=== PATIENT | male | born 1960 | race Caucasian/White ===

== ENCOUNTER 2019-11-24 16:47 | Outpatient (CLI) | payer MEDICARE, MEDICAID, SELFPAY ==
--- NOTE | ~2019-11-24 | US_ITS ---
US thyroid INDICATION: Nontoxic thyroid nodule TECHNIQUE: Real-time sonographic images of the thyroid gland were obtained. COMPARISON: No prior studies for comparison. FINDINGS: The right thyroid lobe measures 4.4 x 1.6 x 1.8 cm. The left thyroid lobe measures 3.9 x 1 .7 x 1.4 cm. There is normal echotexture and echogenicity throughout the thyroid gland. No discrete n odules identified. Normal vascular flow is present. IMPRESSION: 1. Normal thyroid without discrete nodule or abnormal vascularity. Reviewed, dictated and finalized at location A. ER L[facility]ELER
== END 2019-11-24 16:48 | disposition home or self-care (01) ==
LOC: ANHIMG 16:54
PROVIDERS: PCP Family Medicine; Visit Provider Family Medicine
DX: E04.1 Nontoxic single thyroid nodule (principal)
CPT/HCPCS: 76536

== ENCOUNTER 2021-06-12 08:53 | Emergency (ER) | payer MEDICARE, MEDICAID, SELFPAY ==
--- NOTE | ~2021-06-12 | XR_ITS ---
EXAMINATION: XR knee LT min 4V DATE: 06/12/2021 09:32 INDICATION: Left knee injury and pain. TECHNIQUE: 4 views of left knee were obtained. COMPARISON: Left knee radiographs 10/18/2014 FINDINGS: Bone alignment is normal. No fracture. There is mild tricompartmental osteoarthritis. There is a small knee joint effusion. IMPRESSION: 1. Mild left knee osteoarthritis. 2. Small left knee joint effusion. Reviewed, dictated and finalized at location B.
[2021-06-12 09:10] VITALS: BP 137/90; PULSE 52; RESP 16; O2SAT 95
--- NOTE | 2021-06-12 10:04 | ED.LOWEXIN ---
HPI - Extremity Injury (Lower) General Chief Complaint: Extremity Injury, Lower Stated Complaint: L Knee Injury Time Seen by Provider: 06/12/21 09:19 Source: patient Mode of arrival: ambulatory Limitations: no limitations History of Present Illness HPI Narrative: This is a 60-year-old male that presents to the emergency department for left knee pain x1 week. Reports he stepped into a hole and twisted the knee. Since he has had pain with bending and weight bearing. He has been taking Tylenol for pain. Denies fever, other injuries, erythema, edema or warmth. Related Data Home Medications Medication Instructions Recorded Confirmed aspirin [Adult Low Dose Aspirin] 81 mg PO DAILY 06/12/21 benztropine 1 mg PO DAILY 06/12/21 bupropion HCl 75 mg PO DAILY 06/12/21 lorazepam 1 mg PO HS PRN 06/12/21 meloxicam 7.5 mg PO DAILY 06/12/21 metformin 500 mg PO DAILY 06/12/21 olanzapine 20 mg PO HS 06/12/21 omeprazole DAILY 06/12/21 paliperidone palm (3-month) 410 mg IM [id number] 06/12/21 [Invega Trinza] pravastatin 40 mg PO HS 06/12/21 sertraline 200 mg PO DAILY 06/12/21 Allergies Allergy/AdvReac Type Severity Reaction Status Date / Time chlorpromazine AdvReac Intermediate Muscle Verified 06/12/21 09:18 twitching fluphenazine AdvReac Unknown Muscle Verified 06/12/21 09:18 Spasms haloperidol AdvReac Unknown Muscle Verified 06/12/21 09:18 Spasms Review of Systems Review of Systems: CONSTITUTIONAL: Denies fever SKIN: Denies rash MUSCULOSKELETAL: Reports joint pain, and myalgia. NEUROLOGIC: Denies numbness All systems reviewed & are unremarkable except as noted in HPI and below PMFSH Past Medical History Medical History (Updated 06/12/21 @ 10:13 by Nandini Rowland PA-C) History of diabetes mellitus History of gastroesophageal reflux (GERD) History of hyperlipidemia Social History Social History Gender identity (if verbalized by the patient): Male Exam Narrative: GENERAL: Well-appearing, well-nourished, and in no acute distress. HEAD: Normocephalic, atraumatic. EYES: EOMI. EXTREMITIES: Normal range of motion. No edema, erythema or obvious deformity. Normal DP pulses SKIN: Warm, dry, no rash. NEURO: No focal deficits. Alert and oriented x3. PSYCH: Normal mood and affect Course Vital Signs Vital signs: Vital Signs Pulse Rate 52 L 06/12/21 09:10 Respiratory Rate 16 06/12/21 09:10 Blood Pressure 137/90 06/12/21 09:10 Pulse Oximetry 95 06/12/21 09:10 Pulse Rate 52 L 06/12/21 09:10 Respiratory Rate 16 06/12/21 09:10 Blood Pressure 137/90 06/12/21 09:10 Pulse Oximetry 95 06/12/21 09:10 MDM - Extremity Injury (Lower) MDM Narrative Medical decision making narrative: Patient presents to the emergency department for left knee pain after an injury a week ago. He is afebrile and nontoxic-appearing. No erythema, edema or warmth of the knee. He is neurovascularly intact. Left knee x-ray shows mild osteoarthritis and a small joint effusion. Patient given crutches and Apolinar wrap. Instructed on care of knee sprain. He is to follow-up with orthopedics. He was given warnings to return to the ER Imaging Data Radiologist's impression: ITS Impressions Knee X-Ray 06/12/21 09:36 IMPRESSION: 1. Mild left knee osteoarthritis. 2. Small left knee joint effusion. Critical Care Time Critical Care Time Critical Care Time: No Discharge Plan Discharge Clinical Impression: Acute internal derangement of knee Qualifiers: Laterality: left Qualified Code(s): M23.92 - Unspecified internal derangement of left knee Patient Disposition: Home, Self-Care Condition: Stable Instructions: Knee Sprain (ED) Additional Instructions: Return to the ER if you experience fever, redness and swelling of your knee, weakness, numbness, or any other symptoms that are concerning to you Rest, use ice/heat, take anti-inflammatories (Aleve, Ibuprofen, Naproxen, etc)
[2021-06-12] MEDS: KETOROLAC (*BKC) 60 MG/2 ML VIAL IM (10:12)
[2021-06-12 10:37] VITALS: RESP 15
== END 2021-06-12 10:39 | disposition home or self-care (01) ==
PROVIDERS: Emergency Provider Emergency Medicine; PCP Family Medicine
DX: M23.92 Unspecified internal derangement of left knee (principal); E11.9 Type 2 diabetes mellitus without complications; K21.9 Gastro-esophageal reflux disease without esophagitis; E78.5 Hyperlipidemia, unspecified; Z79.84 Long term (current) use of oral hypoglycemic drugs
CPT/HCPCS: 73564; 96372; 99283; J1885

== ENCOUNTER 2022-12-17 18:37 | Emergency (ER) | payer MEDICARE, MEDICAID, SELFPAY ==
--- NOTE | ~2022-12-17 | XR_ITS ---
EXAMINATION: XR chest 2V Exam Date/Time: 12/17/2022 19:05 [facility] LOADER HISTORY: prod cough smoker Comparison: None available. RESULT: Lines, tubes, and devices: None. Lungs and pleura: Diffuse reticulonodular opacities with cuffing. Emphysematous change. Cardiomediastinal silhouette: Stable. Other: No acute osseous or upper abdominal finding. IMPRESSION: Pulmonary opacities may represent bronchiolitis, as can be seen with atypical infection, asthma, aspi ration, and small airways disease. Reviewed, dictated and finalized at location K. LOADER IMPRESSION: Pulmonary opacities may represent bronchiolitis, as can be seen with atypical i nfection, asthma, aspiration, and small airways disease.
[2022-12-17 18:48] VITALS: BP 116/64; PULSE 101; RESP 18; TEMP 36.2; O2SAT 97
[2022-12-17 18:55] VITALS: BP 116/64; PULSE 101; RESP 18; TEMP 36.2; O2SAT 97
--- NOTE | 2022-12-17 19:04 | ED.URI ---
HPI - URI/Sore Throat General Chief Complaint: Upper Respiratory Infection Stated Complaint: cold sx Time Seen by Provider: 12/17/22 19:04 Source: patient Mode of arrival: ambulatory Limitations: no limitations History of Present Illness HPI Narrative: 62 yo M presents with c/o cough for 1 wk. Over the past few days has felt SOB with exertion and mild chest tightness. Afebrile. Current everyday smoker. Has not taken any OTC meds to treat cough. Pt [facility]. is here with a staff member. All systems reviewed and negative except as noted above. Related Data Home Medications Medication Instructions Recorded Confirmed aspirin 81 mg tablet 81 mg PO DAILY 06/12/21 12/17/22 benztropine 1 mg tablet 1 mg PO DAILY 06/12/21 12/17/22 bupropion HCl 75 mg tablet 75 mg PO DAILY 06/12/21 12/17/22 metformin 500 mg tablet 500 mg PO DAILY 06/12/21 12/17/22 olanzapine 20 mg tablet 20 mg PO HS 06/12/21 12/17/22 omeprazole 20 mg capsule,delayed 20 mg DAILY 06/12/21 12/17/22 release pravastatin 40 mg tablet 20 mg PO HS 06/12/21 12/17/22 sertraline 100 mg tablet 200 mg PO DAILY 06/12/21 12/17/22 ergocalciferol (vitamin D2) 1,250 WEEKLY 12/17/22 12/17/22 mcg (50,000 unit) capsule (Vitamin D2) loratadine 10 mg tablet (Claritin) 10 mg PO DAILY 12/17/22 12/17/22 multivit with minerals-iron 18 1 tablet PO DAILY 12/17/22 12/17/22 mg-folic ac 400 mcg-vit K 25 mcg tablet (Adults Multivitamin) paliperidone palm (3-month) 819 819 mg IM [id number] 12/17/22 12/17/22 mg/2.63 mL intramuscular syringe (Invega Trinza) Allergies Allergy/AdvReac Type Severity Reaction Status Date / Time chlorpromazine AdvReac Intermediate Muscle Verified 12/17/22 18:59 twitching fluphenazine AdvReac Unknown Muscle Verified 12/17/22 18:59 Spasms haloperidol AdvReac Unknown Muscle Verified 12/17/22 18:59 Spasms Review of Systems Review of Systems: CONSTITUTIONAL: Denies fever, chills, or sweats. Reports fatigue. EYES: Denies visual changes, redness, or discharge. ENT: Denies rhinorrhea, congestion, sore throat, or otalgia. CARDIOVASCULAR: Denies chest pain, palpitations, or edema. RESPIRATORY: Reports cough and dyspnea with exertion.. GASTROINTESTINAL: Denies abdominal pain, nausea, vomiting, or diarrhea. GENITOURINARY: Denies dysuria or hematuria. SKIN: Denies rash or itching. MUSCULOSKELETAL: Denies back pain, joint pain, or myalgia. NEUROLOGIC: Denies headache, numbness, or weakness. PSYCHIATRIC: Denies anxiety or depression. All other systems reviewed are negative, except as documented in HPI. [facility] Past Medical History Medical History (Updated 12/17/22 @ 19:31 by Bhakti [place] NP) History of diabetes mellitus History of gastroesophageal reflux (GERD) History of hyperlipidemia Social History Social History (System 01/25/22 @ 11:29 by Noemi Alba) Gender identity (if verbalized by the patient): Male Comments At time of signature, agree with nursing past medical, surgical, social and family history. There is no relevant family history pertinent to the presenting complaint. Exam Narrative: GENERAL: This is a well-nourished, well-developed patient, in no apparent distress. HEAD: normocephalic, atraumatic. EYES: PERRL. Sclera clear/white. Vision is grossly intact. EARS: External ears normal, auditory canals clear and without drainage, TMs normal without perforation. Hearing grossly intact. NOSE: External nose normal with no obvious nasal discharge, nares without redness, no rhinorrhea. THROAT: Mucous membranes moist, posterior pharynx clear. NECK: Neck supple, non-tender without lymphadenopathy, masses or thyromegaly. CARDIOVASCULAR: Regular rate and rhythm without murmurs, gallops, or rubs. RESPIRATORY: tight and wheezing throughout all lung foote SKIN: warm, Dry, intact with no suspicious lesions or rash, good texture and turgor. NEURO: awake, alert, and oriented to person, place and
[2022-12-17] MEDS: predniSONE 20 MG TABLET 40 MG PO (19:26)
[2022-12-17] MEDS: ALBUTEROL SULFATE NEB 2.5 MG/3 ML INH INHALATION (19:26)
== END 2022-12-17 19:48 | disposition home or self-care (01) ==
PROVIDERS: Emergency Provider Nurse Practitioner Family
DX: J18.9 Pneumonia, unspecified organism (principal); J20.9 Acute bronchitis, unspecified; E11.9 Type 2 diabetes mellitus without complications; K21.9 Gastro-esophageal reflux disease without esophagitis; E78.5 Hyperlipidemia, unspecified; F17.200 Nicotine dependence, unspecified, uncomplicated; Z79.82 Long term (current) use of aspirin; Z79.84 Long term (current) use of oral hypoglycemic drugs
CPT/HCPCS: 71046; 94640; 99213; G0463; J7512